=== PATIENT | female | born 1995 | race Caucasian/White ===

== ENCOUNTER → 2017-04-09 11:01 | Outpatient (CLI) | payer MEDICAID, SELFPAY ==
[2017-04-09 13:38] LABS: Color, Urine Yellow (Yellow); Glucose, Dipstick Normal (Normal); Ketone-Dipstick Negative (Negative); Leukocyte Esterase-Dipstick 500 /ul (Negative); Nitrite-Dipstick Negative (Negative); Occult Blood-Urine Negative /ul (Negative); Protein-Dipstick Negative (Negative); Urine Bilirubin Dipstick Negative (Negative); Urine Clarity Cloudy (Clear); Urine Urobilinogen Normal (Normal)
[2017-04-09 13:57] LABS: COTININE Drug Screen Negative (<200 ng/mL)
[2017-04-09 13:58] LABS: Absolute Lymphocyte Count 1.86 X10^3/ul (0.83-4.51); Absolute Neutrophil Count 4.7 X10^3/uL (2.0-7.7); Basophil# 0.03 X10^3/uL; Basophil% 0.4 % (0-1); Eosinophil# 0.16 X10^3/uL; Eosinophils% 2.2 % (0-5); Hematocrit 42.3 % (37-47); Lymphocyte # 1.86 X10^3/ul (4.0); Lymphocyte % 25.6 % (19-41); Mean Corp Hgb Conc 33.1 g/gl (32-36); Mean Corpuscular Hgb 31.2 pg (27.0-32.0); Mean Corpuscular Volume 94.2 fL (81-99); Mean Platelet Vol. 12.1 fl (6.2-12.0); Monocyte# 0.46 X10^3/uL; Monocyte% 6.3 % (0-10); Neutrophil # 4.74 X10^3/uL (2.7-7.7); Neutrophil % 65.4 % (47-70); Platelet Count 222 K/mm3 (150-450); Red Blood Count 4.49 M/mm3 (4.2-5.4); White Blood Count 7.3 K/mm3 (4.4-11.0)
[2017-04-09 14:00] LABS: POSITIVE COUNT NO; POSITIVE DIFFERENTIAL NO; POSITIVE MORPHOLOGY NO
[2017-04-09 14:02] LABS: Thyroid Stim Hormone (TSH) 2.02 uIU/mL (0.358-3.74)
[2017-04-09 14:40] LABS: Amphetamine Urine VISTA NEGATIVE (<1000 ng/mL); Barbiturate Urine VISTA NEGATIVE (< 200 ng/mL); Benzodiazepine Urine VISTA NEGATIVE (< 200 ng/mL); Cocaine Urine VISTA NEGATIVE (< 300 ng/mL); Ecstacy Urine VISTA NEGATIVE (< 500 ng/mL); Methadone Urine VISTA NEGATIVE (< 300 ng/mL); PCP Urine VISTA NEGATIVE (< 25 ng/mL); THC Urine VISTA NEGATIVE (< 50 ng/mL); Vista UDS pH Range 8
[2017-04-10 07:13] LABS: HEPATITIS B SURFACE AG Negative (Negative); Hep C Antibodies 0.1 s/co ratio (0.0-0.9)
[2017-04-10 09:49] LABS: HIV - WCH Non-Reactive (Nonreactive); Rubella IgG 119.7 IU/mL
[2017-04-14 01:50] LABS: Prenatal RPR NONREACTIVE (NONREACTIVE)
== END ==
PROVIDERS: Visit Provider Obstetrics & Gynecology
DX: Z34.82 Encounter for supervision of other normal pregnancy, second trimester (principal); Z3A.00 Weeks of gestation of pregnancy not specified
CPT/HCPCS: 36415; 80307; 81002; 84443; 85025; 86703; 86762; 86803; 87340

== ENCOUNTER → 2017-09-13 12:07 | Outpatient (CLI) | payer MEDICAID, SELFPAY ==
[2017-09-13 15:18] LABS: Protein, Urine (Random) 10.3 mg/dL (<11.9)
[2017-09-13 15:23] LABS: ALB/GLOB Ratio 0.6 RATIO (0.9-2.4); AST(SGOT) 14 U/L (15-37); Alanine Aminotransfer ALT/SGPT 15 U/L (13-56); Albumin, Serum 2.6 g/dL (3.2-5.0); Alkaline Phosphatase 266 U/L (45-117); Anion Gap 7 (5-15); BUN 4 mg/dL (7-18); Calcium,Total 8.6 mg/dL (8.5-10.1); Chloride 108 mmol/L (98-107); Creatinine, Serum 0.57 mg/dL (0.55-1.02); EST Glomerular Filtration Rate 140 mL/min (>60); Est Glom Filt Rate - Afr Amer 169 mL/min (>60); Globulin 4.4 g/dL (2.2-4.2); Glucose 71 mg/dL (74-106); Sodium Level 137 mmol/L (136-145); Uric Acid 3.8 mg/dL (2.6-6.0)
[2017-09-13 15:30] LABS: Hematocrit 41.1 % (37-47); Hemoglobin 13.7 g/dl (12.0-15.0); Mean Corp Hgb Conc 33.3 g/gl (32-36); Mean Corpuscular Hgb 31.1 pg (27.0-32.0); Mean Corpuscular Volume 93.4 fL (81-99); Mean Platelet Vol. 12.6 fl (6.2-12.0); Platelet Count 214 K/mm3 (150-450); RBC Distribution Width CV 13.8 % (11.6-14.6); RBC Distribution Width SD 45.2 fl (35.1-43.9); White Blood Count 7.5 K/mm3 (4.4-11.0)
[2017-09-13 15:36] LABS: Scan Indicated on CBC? Y/N NO
== END ==
PROVIDERS: Visit Provider Obstetrics & Gynecology
DX: Z34.83 Encounter for supervision of other normal pregnancy, third trimester (principal)
CPT/HCPCS: 36415; 80053; 82570; 84156; 84550; 85027

== ENCOUNTER 2017-09-17 09:40 | Inpatient (IN) | payer MEDICAID, SELFPAY ==
[2017-09-16 02:00] VITALS: BMI 30.3
[2017-09-17] VITALS (15 sets, daily range): BP systolic 102–131; BP diastolic 46–87; PULSE 60–86; RESP 16; TEMP 36.3–37.8; O2SAT 97–100
[2017-09-17] MEDS: Lactated Ringers 1,000 ML 999 ML IV (10:30)
[2017-09-17 10:49] LABS: Absolute Neutrophil Count 4.3 X10^3/uL (2.0-7.7); Basophil# 0.02 X10^3/uL; Basophil% 0.3 % (0-1); Eosinophil# 0.22 X10^3/uL; Eosinophils% 3.2 % (0-5); Hemoglobin 13.2 g/dl (12.0-15.0); Lymphocyte % 26.2 % (19-41); Mean Corpuscular Hgb 30.8 pg (27.0-32.0); Mean Corpuscular Volume 93.5 fL (81-99); Mean Platelet Vol. 12.1 fl (6.2-12.0); Monocyte# 0.57 X10^3/uL; Monocyte% 8.3 % (0-10); Neutrophil # 4.25 X10^3/uL (2.7-7.7); Neutrophil % 61.7 % (47-70); Platelet Count 194 K/mm3 (150-450); RBC Distribution Width CV 14.1 % (11.6-14.6); RBC Distribution Width SD 47.7 fl (35.1-43.9); Red Blood Count 4.28 M/mm3 (4.2-5.4); White Blood Count 6.9 K/mm3 (4.4-11.0)
[2017-09-17 10:50] LABS: POSITIVE COUNT NO; POSITIVE DIFFERENTIAL NO; POSITIVE MORPHOLOGY NO
[2017-09-17 10:54] LABS: Prothrombin Time (Protime)PT. 12.9 SECONDS (11.7-14.9)
[2017-09-17 10:55] LABS: Partial Thromboplast Time 35.6 Seconds (24.1-36.2)
[2017-09-17] MEDS: Lactated Ringers 1,000 ML 100 ML IV ×2 (11:30→15:53)
[2017-09-17] MEDS: Sodium Citrate/Citric Acid 30 ML UDC PO (11:30)
[2017-09-17] MEDS: Oxytocin 30 units/NS 500 ml 30 UNITS/500 ML IV.SOLN 167 UNITS IV (11:48)
[2017-09-17] MEDS: Cefazolin 2 GM in 0.9% Normal Saline 100 ML IV (11:50)
[2017-09-17] MEDS: Ketorolac 30 MG/ML Syringe IV ×2 (13:10→18:55)
[2017-09-18] VITALS (8 sets, daily range): BP systolic 104–132; BP diastolic 45–70; PULSE 71–77; RESP 16–18; TEMP 36.7–37.3; O2SAT 97–99
[2017-09-18] MEDS: Ketorolac 30 MG/ML Syringe IV ×4 (00:02→17:35)
[2017-09-18] MEDS: 0.9% Saline Lock 10 ML Syringe IV ×4 (00:03→17:35)
[2017-09-18] MEDS: Lactated Ringers 1,000 ML 100 ML IV (01:55)
[2017-09-18 04:50] LABS: Hematocrit 35.4 % (37-47); Hemoglobin 11.6 g/dl (12.0-15.0); Mean Corp Hgb Conc 32.8 g/gl (32-36); Mean Corpuscular Hgb 31.2 pg (27.0-32.0); Mean Corpuscular Volume 95.2 fL (81-99); Mean Platelet Vol. 11.9 fl (6.2-12.0); Platelet Count 164 K/mm3 (150-450); RBC Distribution Width SD 46.1 fl (35.1-43.9); Red Blood Count 3.72 M/mm3 (4.2-5.4); White Blood Count 7.4 K/mm3 (4.4-11.0)
[2017-09-18 04:51] LABS: Scan Indicated on CBC? Y/N NO
--- NOTE | 2017-09-18 07:46 | PCM.OPRPT ---
Problem List (1) 37 weeks gestation of Status: Acute (2) delivery delivered Status: Acute (3) History of classical section Status: Acute Report of Operation Date of Procedure: 09/17/17 Pre-Operative Diagnosis: 37 1/7wga, h/o prior classical section with T incision Post-Operative Diagnosis: 37 1/7wga, history of prior Classical section with T incision Surgery/Procedure Performed:: Repeat low transverse section Description of Surgical Findings:: normal tubes MALE infant, Apgars 8 and 9, Weight 3055g employment director: Crystal Freeman Type of Anesthesia:: Spinal Anesthesiologist: Mateus Shukla Specimen's removed: placenta to WP Drains: Urine - 600 mL Estimated Blood Loss (mL): 500 Fluids Replaced: 1700 mL Description of Procedure: The patient was taken to the operating room and spinal analgesia was administered. She is placed in a dorsal supine position with left lateral tilt. The perineum and abdomen were prepped and draped in sterile fashion. And the spinal was found to be adequate. A Pfannenstiel incision was made using a scalpel and brought down to incise the subcutaneous tissue and rectus fascia at the midline. Subcutaneous tissue was bluntly dissected off the fascia laterally. The fascial incision was dissected laterally and cephalad using curved Frederick scissors. The superior leaflet of the rectus fascia was grasped using Guille clamps and bluntly dissected and sharply dissected from the underlying rectus muscle. In a similar fashion the inferior rectus fascia was dissected from the underlying muscle. The rectus muscles were bluntly at the midline. The peritoneum was identified and entered [sharply]. The bladder blade was placed into the abdomen and the vesicouterine peritoneal fold identified. The fold was incised and a bladder flap created. Bladder blade was then repositioned to the abdomen. A low transverse hysterotomy was made using the [Metzenbaum scissors] to level of the membranes. The hysterotomy was extended bluntly cephalad and caudad. The membranes were then ruptured revealing clear fluid. The head was elevated and brought to the level of the hysterotomy and the infant delivered revealing vigorous [male] infant. The cord was doubly clamped and cut after 60 seconds. The was passed to awaiting [nursery personnel]. The placenta was [expressed] from the uterus and appeared intact on inspection. The uterus was cleared of debris. The hysterotomy was then repaired using 0 Vicryl running lock suture. Katie was placed for additional hemostasis with hemostasis attained. The bladder blade was removed. The anterior cul-de-sac was cleared of debris. The peritoneum and rectus muscles were reapproximated using 2-0 Vicryl running suture. The rectus fascia was closed using 0 Vicryl running suture. The subcutaneous tissue was sponge irrigated and small capillary bleeding controlled using the Bovie device. The subcutaneous tissue was reapproximated using 2-0 Vicryl. The skin was closed using 4-0 Monocryl subcuticularly. A Mepilex occlusive dressing was placed over the incision. The fundus was firm. The patient was then transferred to the recovery room without complication. Sponge, instrument, and needle counts were correct ?2. - Complications None - Admit VTE Documentation VTE Present on Admission: No VTE Mechan Device Prophylaxis: SCD's VTE Pharm Prophylaxis ordered?: No
--- NOTE | 2017-09-18 07:52 | OP.PCM_ITS ---
Problem List (1) 37 weeks gestation of Status: Acute (2) delivery delivered Status: Acute (3) History of classical section Status: Acute Report of Operation Date of Procedure: 09/17/17 Pre-Operative Diagnosis: 37 1/7wga, h/o prior classical section with T incision Post-Operative Diagnosis: 37 1/7wga, history of prior Classical section with T incision Surgery/Procedure Performed:: Repeat low transverse section Description of Surgical Findings:: normal tubes MALE infant, Apgars 8 and 9, Weight 3055g physician locums urgent care: Crystal Freeman Type of Anesthesia:: Spinal Anesthesiologist: Mateus Shukla Specimen's removed: placenta to WP Drains: Urine - 600 mL Estimated Blood Loss (mL): 500 Fluids Replaced: 1700 mL Description of Procedure: The patient was taken to the operating room and spinal analgesia was administered. She is placed in a dorsal supine position with left lateral tilt. The perineum and abdomen were prepped and draped in sterile fashion. And the spinal was found to be adequate. A Pfannenstiel incision was made using a scalpel and brought down to incise the subcutaneous tissue and rectus fascia at the midline. Subcutaneous tissue was bluntly dissected off the fascia laterally. The fascial incision was dissected laterally and cephalad using curved Frederick scissors. The superior leaflet of the rectus fascia was grasped using Guille clamps and bluntly dissected and sharply dissected from the underlying rectus muscle. In a similar fashion the inferior rectus fascia was dissected from the underlying muscle. The rectus muscles were bluntly at the midline. The peritoneum was identified and entered [sharply]. The bladder blade was placed into the abdomen and the vesicouterine peritoneal fold identified. The fold was incised and a bladder flap created. Bladder blade was then repositioned to the abdomen. A low transverse hysterotomy was made using the [Metzenbaum scissors] to level of the membranes. The hysterotomy was extended bluntly cephalad and caudad. The membranes were then ruptured revealing clear fluid. The head was elevated and brought to the level of the hysterotomy and the infant delivered revealing vigorous [ male] . The cord was doubly clamped and cut after 60 seconds. The was passed to awaiting [nursery personnel]. The placenta was [expressed ] from the uterus and appeared intact on inspection. The uterus was cleared of debris. The hysterotomy was then repaired using 0 Vicryl running lock suture. Katie was placed for additional hemostasis with hemostasis attained. The bladder blade was removed. The anterior cul-de-sac was cleared of debris. The peritoneum and rectus muscles were reapproximated using 2-0 Vicryl running suture. The rectus fascia was closed using 0 Vicryl running suture. The subcutaneous tissue was sponge irrigated and small capillary bleeding controlled using the Bovie device. The subcutaneous tissue was reapproximated using 2-0 Vicryl. The skin was closed using 4-0 Monocryl subcuticularly. A Mepilex occlusive dressing was placed over the incision. The fundus was firm. The patient was then transferred to the recovery room without complication. Sponge, instrument, and needle counts were correct ?2. - Complications None - Admit VTE Documentation VTE Present on Admission: No VTE Mechan Device Prophylaxis: SCD's VTE Pharm Prophylaxis ordered?: No
--- NOTE | 2017-09-18 08:00 | PN.OBGYN_ITS ---
Patient Problems: Active and Suspected Problems 37 weeks gestation of (Acute) delivery delivered (Acute) Subjective: Hanna did not get much sleep overnight. Infant cluster fed overnight. Denies heavy lochia. Tolerated a regular diet without nausea or vomiting. No flatus yet. OOB to chair. Pain controlled. Objective: AVSS - Physical Exam General: Alert, Oriented x3, Cooperative HEENT: Atraumatic, PERRLA, EOMI, Normocephalic Lungs: Clear to auscultation, Normal air movement Cardiovascular: Regular rate, Regular Rhythm, Normal S1, Normal S2 Abdomen: Bowel Sounds Present, Soft, Non Tender, Non-Distended Extremities: No edema, No Calf Tenderness Neurological: Neuro grossly intact Psych/Mental Status: Normal Affect, Appropriate, Alert and oriented to time, place, person, mood and affect Vital Signs Temp Pulse Resp BP Pulse Ox 98.4 F 71 16 120/46 L 98 09/18/17 06:07 09/18/17 06:07 09/18/17 06:07 09/18/17 06:07 09/18/17 06:07 Oxygen Delivery Method Room Air Weight: 85.2 kg Body Mass Index (BMI) 30.3 Intake and Output for Last 24 Hours 09/16/17 09/17/17 09/18/17 23:59 23:59 23:59 Intake Total 3300 / 3300 3566 / 3566 Output Total 7300 / 7300 2400 / 2400 Balance -4000 / -4000 1166 / 1166 Laboratory Tests Past 24 Hrs 09/17/17 09/17/17 09/17/17 10:30 10:30 10:30 WBC 6.9 RBC 4.28 Hgb 13.2 Hct 40.0 MCV 93.5 MCH 30.8 MCHC 33.0 RDW 14.1 RDW Differential 47.7 H Plt Count 194 MPV 12.1 H Immature Gran % (Auto) 0.300 Neut % (Auto) 61.7 Lymph % (Auto) 26.2 [place] % (Auto) 8.3 Eos % (Auto) 3.2 Baso % (Auto) 0.3 Absolute Neuts (auto) 4.3 Absolute Lymphs (auto) 1.80 Total Counted Not Reportable PT 12.9 INR 1.0 APTT 35.6 Blood Type O POSITIVE Antibody Screen NEGATIVE 09/18/17 04:35 WBC 7.4 RBC 3.72 L Hgb 11.6 L Hct 35.4 L MCV 95.2 MCH 31.2 MCHC 32.8 RDW 14.0 RDW Differential 46.1 H Plt Count 164 MPV 11.9 Immature Gran % (Auto) Neut % (Auto) Lymph % (Auto) [place] % (Auto) Eos % (Auto) Baso % (Auto) Absolute Neuts (auto) Absolute Lymphs (auto) Total Counted PT INR APTT Blood Type Antibody Screen Medical Necessity - Tobacco Use Smoking Status: Never smoker Assessment/Plan All Active Problems 37 weeks gestation of (Acute) delivery delivered (Acute) 38 weeks gestation of (Acute) History of classical section (Acute) 22yo POD#1 s/p RLTCS doing well. -O positive, Rubella immune - -UO adequate, d/c chowdary - ambulation encouraged -Routine postop care
[2017-09-18] MEDS: oxyCODONE 5 MG Tablet PO (14:51)
[2017-09-18] MEDS: Senna/Docusate Sodium 1 Tablet PO (15:57)
[2017-09-18] MEDS: Hydrocortisone 2.5% Crm 1 APPLIC TOPICAL (20:38)
[2017-09-19] MEDS: 0.9% Saline Lock 10 ML Syringe IV ×2 (00:10→05:50)
[2017-09-19] MEDS: Ketorolac 30 MG/ML Syringe IV ×2 (00:10→05:49)
[2017-09-19 02:21] VITALS: BP 112/66; PULSE 68; RESP 16; TEMP 36.5; O2SAT 98
[2017-09-19] MEDS: Senna/Docusate Sodium 1 Tablet PO (06:00)
--- NOTE | 2017-09-19 09:10 | PCM.PN.OB ---
Patient Problems: Active and Suspected Problems 37 weeks gestation of (Acute) delivery delivered (Acute) Subjective: c/o rash from incisional dressing. Itching improved with hydrocortisone cream. clusterfed again. Ambulating without difficulty. Feels well today and pain minimum. Lochia slowed. Objective: AVSS - Physical Exam General: Alert, Oriented x3, Cooperative HEENT: Atraumatic, PERRLA, EOMI, Normocephalic Lungs: Clear to auscultation, Normal air movement Cardiovascular: Regular rate, Regular Rhythm, Normal S1, Normal S2 Abdomen: Bowel Sounds Present, Soft, Non Tender, Non-Distended, Passing Flatus, - - Incision c/d/i and nontender Extremities: No edema, No Calf Tenderness Neurological: Neuro grossly intact Psych/Mental Status: Normal Affect, Appropriate, Alert and oriented to time, place, person, mood and affect Vital Signs Temp Pulse Resp BP Pulse Ox 97.7 F L 68 16 112/66 98 09/19/17 02:21 09/19/17 02:21 09/19/17 02:21 09/19/17 02:21 09/19/17 02:21 Oxygen Delivery Method Room Air Weight: 85.2 kg Body Mass Index (BMI) 30.3 Intake and Output for Last 24 Hours 09/17/17 09/18/17 09/19/17 23:59 23:59 23:59 Intake Total 3300 / 3300 3566 / 3566 Output Total 7300 / 7300 6000 / 6000 Balance -4000 / -4000 -2434 / -2434 Medical Necessity - Tobacco Use Smoking Status: Never smoker Assessment/Plan All Active Problems 37 weeks gestation of (Acute) delivery delivered (Acute) 38 weeks gestation of (Acute) History of classical section (Acute) 22yo POD#1 s/p RLTCS doing well. -O positive, Rubella immune - -Routine postop care -d/c home today
--- NOTE | 2017-09-19 09:18 | DCINST_ITS ---
Discharge Diet: No Restrictions Discharge Activity: Return to Normal Activity, May not drive while taking narcotic pain medications., May Shower, - - No tub bath for 2 weeks May resume sexual activity in: 6 weeks Lifting Restrictions: 10-20 lb Call your doctor if your incision/area has: Continuous Slow Oozing, Sudden Increased Bleeding, Increased Pain/ Swelling, Increased Redness, Foul Smelling Discharge Call your doctor if you observe: Fever of 101 or Higher, Inability to urinate, Inability to have a bowel movement, Using more than one pad per hour, Shortness of breath, Chest pain, Calf discomfort, Uncontrolled pain Suture Line Care: Avoid Pulling/Pushing Cleanse incision/area with: Soap & Water Additional Instructions: If you experience any of the following, contact your healthcare provider. * Bleeding that soaks a pad every hour for 2 hours * Fever 100.4 or higher * Unrelieved incision or abdominal pain * Swelling, redness, discharge or bleeding from your incision or episiotomy site * Your incision begins to separate * Problems urinating (including inability to urinate or burning while urinating) . * Visual changes * Severe headache * Flu-like symptoms * Pain or redness in one of both of your breasts * Pain, warmth, tenderness or swelling in your legs, especially the calf area * Frequent nausea and vomiting * Symptoms of depression or anxiety If you experience any of the following, call 911 or go to the nearest Emergency Room. * Chest pain * Problems breathing * Seizure activity * Partial or complete paralysis of a body part, slurred speech, weakness or drooping of the face, or a sudden inability to walk or hold your balance Allergies/Adverse Reactions: Allergies No Known Allergies Allergy (Verified 09/22/15 14:45) Medications to take at Discharge Melatonin 3 mg PO DAILY MDD 3 09/12/17 Dha 1 tab PO DAILY MDD 1 09/12/17 Ibuprofen 600 mg PO TID PRN #30 tab 09/19/17 Oxycodone [Oxyir] 1 - 2 tab PO Q4H PRN PRN 3 Days #28 tablet 09/19/17 Senna/Docusate Sodium [Senokot-S] 1 - 2 tab PO DAILY PRN #60 tab 09/19/17 The following prescriptions were given: Oxycodone [Oxyir] 1 - 2 tab PO Q4H PRN PRN 3 Days #28 tablet PRN Reason: Mod-Severe Pain (4-12/04) Senna/Docusate Sodium [Senokot-S] 1 - 2 tab PO DAILY PRN #60 tab PRN Reason: Constipation Ibuprofen 600 mg PO TID PRN #30 tab PRN Reason: Pain Follow-Up: Call to make an appointment with your doctor for an incision check in 1-2 weeks. You will also need a 6 week post- follow up appointment. Test results from this visit will be discussed in further detail at your follow- up appointment, if applicable. Please Follow Up With: Shanae Ortez MD When: 1-2 weeks Primary Care Physician: Care Physician,No Primary [Primary Care Provider] -
[2017-09-19 10:00] VITALS: BP 109/69; PULSE 74; RESP 20; TEMP 36.6
--- NOTE | 2017-09-27 13:01 | NURSING ---
follow up phone call attempted left message
== END 2017-09-19 13:10 | disposition home or self-care (01) | DRG 371 ==
PROVIDERS: Obstetrics & Gynecology; Admitting Provider Obstetrics & Gynecology; Visit Provider Obstetrics & Gynecology
PROC: (CPT 59514; principal; 2017-09-17 11:45)
DX: O34.212 Maternal care for vertical scar from previous cesarean delivery (principal); Z3A.37 37 weeks gestation of pregnancy; Z37.0 Single live birth
CPT/HCPCS: 85025; 85027; 85610; 85730; 86850; 86900; 99218; J7120; A4216; G0378

== ENCOUNTER → 2019-07-10 15:48 | Outpatient (CLI) | payer OTHER, SELFPAY ==
[2017-09-16 02:00] VITALS: BMI 30.3
[2019-07-10 16:14] LABS: Absolute Lymphocyte Count 1.97 X10^3/uL (0.83-4.51); Absolute Neutrophil Count 6.5 X10^3/uL (2.0-7.7); Basophil# 0.05 X10^3/uL; Basophil% 0.5 % (0-1); Eosinophil# 0.31 X10^3/uL; Eosinophils% 3.2 % (0-5); Hematocrit 41.7 % (37-47); Hemoglobin 13.5 g/dL (12.0-15.0); Lymphocyte # 1.97 X10^3/ul (4.0); Lymphocyte % 20.6 % (19-41); Mean Corp Hgb Conc 32.4 g/dL (32-36); Mean Corpuscular Hgb 31.1 pg (27.0-32.0); Mean Corpuscular Volume 96.1 fL (81-99); Mean Platelet Vol. 11.8 fl (6.2-12.0); Monocyte# 0.71 X10^3/uL; Monocyte% 7.4 % (0-10); NRBC Flagged by Analyzer 0 % (0-5); Neutrophil # 6.47 X10^3/uL (2.7-7.7); Neutrophil % 67.9 % (47-70); Platelet Count 229 K/mm3 (150-450); RBC Distribution Width CV 13.3 % (11.6-14.6); Red Blood Count 4.34 M/mm3 (4.2-5.4); White Blood Count 9.6 K/mm3 (4.4-11.0)
[2019-07-10 16:19] LABS: Color, Urine Yellow (Yellow); Glucose, Dipstick Normal (Normal); Ketone-Dipstick 5 mg/dl (Negative); Leukocyte Esterase-Dipstick 100 /ul (Negative); Nitrite-Dipstick Negative (Negative); Occult Blood-Urine Negative /ul (Negative); Protein-Dipstick Negative (Negative); Urine Bilirubin Dipstick Negative (Negative); Urine Clarity Cloudy (Clear); Urine Urobilinogen Normal (Normal); Urine pH 6.5 (5.0 - 8.0)
[2019-07-10 17:11] LABS: Thyroid Stim Hormone (TSH) 1.45 uIU/mL (0.358-3.74)
[2019-07-10 17:25] LABS: Amphetamine Urine VISTA NEGATIVE (<1000 ng/mL); Barbiturate Urine VISTA NEGATIVE (< 200 ng/mL); Benzodiazepine Urine VISTA NEGATIVE (< 200 ng/mL); Cocaine Urine VISTA NEGATIVE (< 300 ng/mL); Ecstacy Urine VISTA NEGATIVE (< 500 ng/mL); Methadone Urine VISTA NEGATIVE (< 300 ng/mL); PCP Urine VISTA NEGATIVE (< 25 ng/mL); THC Urine VISTA NEGATIVE (< 50 ng/mL); Vista UDS pH Range 6
[2019-07-13 09:22] LABS: HIV - WCH Non-Reactive (Nonreactive); Hepatitis B Surface Antigen Non-Reactive (Nonreactive); Hepatitis C Antibody Non-Reactive (Nonreactive); Rubella IgG 81.3 IU/mL
[2019-07-16 02:20] LABS: Prenatal RPR NONREACTIVE (NONREACTIVE)
== END ==
PROVIDERS: Referring Provider Obstetrics & Gynecology; Visit Provider Obstetrics & Gynecology
DX: Z34.83 Encounter for supervision of other normal pregnancy, third trimester (principal)
CPT/HCPCS: 36415; 80307; 81002; 84443; 85025; 86703; 86762; 86803; 87340

== ENCOUNTER 2019-11-28 18:13 | Outpatient (CLI) | payer OTHER, SELFPAY ==
[2019-11-28 18:24] VITALS: BP 114/74; PULSE 75; TEMP 36.6; O2SAT 97
[2019-11-28 18:31] VITALS: BMI 33.5
--- NOTE | 2019-11-30 06:42 | OB.TRI.NOTE ---
- Problem List (1) 26 weeks gestation of Status: Acute (2) Decreased movement Status: Acute Qualifiers: Fetus number: single or unspecified fetus Trimester: second trimester Qualified Code(s): O36.8120 - Decreased movements, second trimester, not applicable or unspecified History of Present Illness Date of Service: 11/28/19 Was patient seen by the physician?: No Reason For Visit: DECREASED MOVEMENT Final REGGIE: 02/29/20 Final REGGIE Source: US <20 weeks Gestational age: 26 Weeks and 5 Days History of Present Illness: 24yo @ 26 5/7wga with c/o decreased movement. She called into L&D and I advised her to come in for evaluation. Allergies No Known Allergies Allergy (Verified 09/22/15 14:45) Physical Exam Vitals: Vital Signs Temp Pulse BP Pulse Ox 97.8 F 75 114/74 97 11/28/19 18:24 11/28/19 18:24 11/28/19 18:24 11/28/19 18:24 NST - FHR Rate Baby A Baseline: 140 Variability:: Moderate Accelerations:: 15 x 15 Decelerations:: Variable NST Reactive:: Appropriate for gestational age FHR Category:: Category II Uterine Activity:: 0/10 Impression/Plan 24yo @ 26 5/7wga with decreased movement -FHR AGA, pt reported improved movement during period of observation -d/c home
== END 2019-11-28 19:00 | disposition home or self-care (01) ==
LOC: WPOUT 18:16 → OBT 18:18
PROVIDERS: Referring Provider Obstetrics & Gynecology; Visit Provider Obstetrics & Gynecology
DX: O36.8120 Decreased fetal movements, second trimester, not applicable or unspecified (principal); Z3A.26 26 weeks gestation of pregnancy
CPT/HCPCS: 59025; 59050; 99218; G0378

== ENCOUNTER → 2019-12-02 16:12 | Outpatient (CLI) | payer OTHER, SELFPAY ==
[2019-11-28 18:31] VITALS: BMI 33.5
[2019-12-02 17:25] LABS: Hematocrit 39.1 % (37-47); Hemoglobin 12.6 g/dL (12.0-15.0); Mean Corp Hgb Conc 32.2 g/dL (32-36); Mean Corpuscular Hgb 30.7 pg (27.0-32.0); Mean Corpuscular Volume 95.1 fL (81-99); Mean Platelet Vol. 12.6 fl (6.2-12.0); Platelet Count 239 K/mm3 (150-450); RBC Distribution Width CV 13.4 % (11.6-14.6); RBC Distribution Width SD 46.8 fl (35.1-43.9); Red Blood Count 4.11 M/mm3 (4.2-5.4); White Blood Count 7.6 K/mm3 (4.4-11.0)
[2019-12-02 17:31] LABS: Glucose Challenge Gest 1H 50g 85 mg/dL (70-140)
== END ==
PROVIDERS: Visit Provider Obstetrics & Gynecology
DX: Z34.82 Encounter for supervision of other normal pregnancy, second trimester (principal)
CPT/HCPCS: 36415; 82950; 85027

== ENCOUNTER → 2019-12-25 15:17 | Outpatient (CLI) | payer OTHER, SELFPAY ==
[2019-11-28 18:31] VITALS: BMI 33.5
[2019-12-25 16:05] LABS: Hematocrit 38.9 % (37-47); Hemoglobin 12.7 g/dL (12.0-15.0); Mean Corp Hgb Conc 32.6 g/dL (32-36); Mean Corpuscular Hgb 30.9 pg (27.0-32.0); Mean Corpuscular Volume 94.6 fL (81-99); Mean Platelet Vol. 12.2 fl (6.2-12.0); Platelet Count 266 K/mm3 (150-450); RBC Distribution Width CV 13.7 % (11.6-14.6); RBC Distribution Width SD 47.1 fl (35.1-43.9); Red Blood Count 4.11 M/mm3 (4.2-5.4); White Blood Count 8.4 K/mm3 (4.4-11.0)
[2019-12-25 16:11] LABS: Protein, Urine (Random) 10.3 mg/dL (<11.9); Protein:Creat Ratio 131 mg/g CRE (0-200)
[2019-12-25 17:22] LABS: ALB/GLOB Ratio 0.6 RATIO (0.9-2.4); AST(SGOT) 11 U/L (15-37); Alanine Aminotransfer ALT/SGPT 12 U/L (13-56); Albumin, Serum 2.6 g/dL (3.2-5.0); Alkaline Phosphatase 158 U/L (45-117); Anion Gap 7 (5-15); BUN 6 mg/dL (7-18); BUN/Creat Ratio 10.9 RATIO (10-20); Chloride 107 mmol/L (98-107); Creatinine, Serum 0.55 mg/dL (0.55-1.02); EST Glomerular Filtration Rate 142 mL/min (>60); Est Glom Filt Rate - Afr Amer 172 mL/min (>60); Globulin 4.3 g/dL (2.2-4.2); Glucose 80 mg/dL (74-106); Protein, Total 6.9 g/dL (6.4-8.2); Sodium Level 138 mmol/L (136-145); Uric Acid 2.8 mg/dL (2.6-6.0)
== END ==
PROVIDERS: Visit Provider Obstetrics & Gynecology
DX: O13.3 Gestational [pregnancy-induced] hypertension without significant proteinuria, third trimester (principal); R51.9 Headache, unspecified; Z3A.00 Weeks of gestation of pregnancy not specified
CPT/HCPCS: 36415; 80053; 82570; 84156; 84550; 85027

== ENCOUNTER → 2019-12-29 | Outpatient (CLI) | payer OTHER, SELFPAY ==
[2019-12-29 08:52] LABS: 24HR. UA Prot. Total Volume 1500 mL; Urine Protein (24 Hour) 12.6 mg/dL (<11.9)
== END | disposition home or self-care (01) ==
LOC: LABSPEC 08:35
PROVIDERS: Visit Provider Obstetrics & Gynecology
DX: O13.3 Gestational [pregnancy-induced] hypertension without significant proteinuria, third trimester (principal); R51.9 Headache, unspecified
CPT/HCPCS: 81050; 84156

== ENCOUNTER 2020-01-22 13:00 | Outpatient (CLI) | payer OTHER, SELFPAY ==
[2020-01-22 13:09] VITALS: BP 127/84; PULSE 77; TEMP 36.6; O2SAT 98
[2020-01-22 13:12] VITALS: BMI 33.6
--- NOTE | 2020-01-22 17:45 | PCM.PN.BLA ---
Progress Note NST REACTIVE 135/mod beltran/+accel/no decel, toco quiet. For HTN, BP wnl.
== END 2020-01-22 13:35 | disposition home or self-care (01) ==
PROVIDERS: Referring Provider Student in an Organized Health Care Education/Training Program; Visit Provider Student in an Organized Health Care Education/Training Program
DX: O16.9 Unspecified maternal hypertension, unspecified trimester (principal)
CPT/HCPCS: 59025

== ENCOUNTER 2020-01-27 17:00 | Outpatient (CLI) | payer OTHER, SELFPAY ==
[2020-01-27] VITALS (11 sets, daily range): BP systolic 104–122; BP diastolic 57–70; PULSE 68–83; BMI 32.8
[2020-01-27] MEDS: Acetaminophen 500 MG Tablet 1000 MG PO (17:33)
[2020-01-27 17:46] LABS: Protein, Urine (Random) 10.8 mg/dL (<11.9); Protein:Creat Ratio 238 mg/g CRE (0-200)
[2020-01-27 18:18] LABS: Hematocrit 37.3 % (37-47); Hemoglobin 12.1 g/dL (12.0-15.0); Mean Corp Hgb Conc 32.4 g/dL (32-36); Mean Corpuscular Volume 92.6 fL (81-99); Mean Platelet Vol. 12.8 fl (6.2-12.0); Platelet Count 245 K/mm3 (150-450); RBC Distribution Width CV 13.3 % (11.6-14.6); RBC Distribution Width SD 44.7 fl (35.1-43.9); Red Blood Count 4.03 M/mm3 (4.2-5.4); White Blood Count 8.9 K/mm3 (4.4-11.0)
[2020-01-27 18:19] LABS: Scan Indicated on CBC? Y/N NO
[2020-01-27 18:52] LABS: ALB/GLOB Ratio 0.6 RATIO (0.9-2.4); AST(SGOT) 13 U/L (15-37); Alanine Aminotransfer ALT/SGPT 16 U/L (13-56); Albumin, Serum 2.4 g/dL (3.2-5.0); Alkaline Phosphatase 209 U/L (45-117); Anion Gap 6 (5-15); BUN 8 mg/dL (7-18); BUN/Creat Ratio 16.7 RATIO (10-20); Calcium,Total 8.7 mg/dL (8.5-10.1); Chloride 108 mmol/L (98-107); Creatinine, Serum 0.48 mg/dL (0.55-1.02); EST Glomerular Filtration Rate 167 mL/min (>60); Est Glom Filt Rate - Afr Amer 202 mL/min (>60); Estimated Creatinine Clearance 174.23 ml/min; Globulin 4.3 g/dL (2.2-4.2); Glucose 76 mg/dL (74-106); Potassium 3.9 mmol/L (3.5-5.1); Protein, Total 6.7 g/dL (6.4-8.2); Sodium Level 136 mmol/L (136-145); Uric Acid 3.2 mg/dL (2.6-6.0)
--- NOTE | 2020-01-28 05:52 | OB.TRI.NOTE ---
History of Present Illness Was patient seen by the physician?: No Reason For Visit: ELEVATED BLOOD PRESURE Date of Service: 01/27/20 Final REGGIE: 02/29/20 Final REGGIE Source: US <20 weeks Gestational age: 35 Weeks and 2 Days History of Present Illness: 35+ week intrauterine with headache reported in the office as well as some elevated blood pressures. Presents to rule out -induced hypertension. Allergies No Known Allergies Allergy (Verified 01/27/20 17:20) Laboratory Studies: Laboratory Tests 01/27/20 01/27/20 01/27/20 Range/Units 17:30 17:30 17:30 WBC 8.9 (4.4-11.0) K/mm3 RBC 4.03 L (4.2-5.4) M/mm3 Hgb 12.1 (12.0-15.0) g/dL Hct 37.3 (37-47) % MCV 92.6 (81-99) fL MCH 30.0 (27.0-32.0) pg MCHC 32.4 (32-36) g/dL RDW Std Deviation 44.7 H (35.1-43.9) fl RDW Coeff of Ernesto 13.3 (11.6-14.6) % Plt Count 245 (150-450) K/mm3 MPV 12.8 H (6.2-12.0) fl Sodium 136 (136-145) mmol/L Potassium 3.9 (3.5-5.1) mmol/L Chloride 108 H (98-107) mmol/L Carbon Dioxide 22.0 (21.0-32.0) mmol/L Anion Gap 6 (5-15) BUN 8 (7-18) mg/dL Creatinine 0.48 L (0.55-1.02) mg/dL Estim Creat Clear Calc 174.23 ml/min Est GFR (MDRD) Af Amer 202 (>60) mL/min Est GFR (MDRD) Non-Af 167 (>60) mL/min BUN/Creatinine Ratio 16.7 (10-20) RATIO Glucose 76 (74-106) mg/dL Uric Acid 3.2 (2.6-6.0) mg/dL Calcium 8.7 (8.5-10.1) mg/dL Total Bilirubin 0.20 (0.20-1.00) mg/dL AST 13 L (15-37) U/L ALT 16 (13-56) U/L Alkaline Phosphatase 209 H (45-117) U/L Total Protein 6.7 (6.4-8.2) g/dL Albumin 2.4 L (3.2-5.0) g/dL Globulin 4.3 H (2.2-4.2) g/dL Albumin/Globulin Ratio 0.6 L (0.9-2.4) RATIO U Random Total Protein 10.8 (<11.9) mg/dL Urine Creatinine 45.40 (NO RANGE EST.) mg/dL Protein/Creatinin Ratio 238 H (0-200) mg/g CRE Physical Exam Vitals: Vital Signs Pulse BP 81 109/68 01/27/20 18:56 01/27/20 18:56 NST - FHR Rate Baby A NST Reactive:: Yes FHR Category:: Category I Impression/Plan 35+ week intrauterine uterine with headache. Blood pressures on labor and delivery normal as well as PIH labs. Reactive nonstress test. Will release to home with routine follow-up. Encourage more rest at home.
== END 2020-01-27 19:05 | disposition home or self-care (01) ==
PROVIDERS: Obstetrics & Gynecology; Visit Provider Obstetrics & Gynecology
DX: O26.93 Pregnancy related conditions, unspecified, third trimester (principal); R51.9 Headache, unspecified; R03.0 Elevated blood-pressure reading, without diagnosis of hypertension; Z3A.35 35 weeks gestation of pregnancy
CPT/HCPCS: 36415; 59025; 59050; 80053; 82570; 84156; 84550; 85027; 99218; G0378

== ENCOUNTER → 2020-01-29 | Outpatient (CLI) | payer OTHER, SELFPAY ==
[2020-01-27 17:21] VITALS: BMI 32.8
[2020-01-29 16:38] LABS: Mucous, Urine 0 SEEN /hpf (<or=2+); Red Blood Cells-Urine 0 SEEN /hpf (0-5)
[2020-01-29 16:59] LABS: Color, Urine Yellow (Yellow); Glucose, Dipstick Normal (Normal); Ketone-Dipstick Negative (Negative); Leukocyte Esterase-Dipstick 500 /ul (Negative); Nitrite-Dipstick Negative (Negative); Occult Blood-Urine Negative /ul (Negative); Protein-Dipstick Negative (Negative); Urine Bilirubin Dipstick Negative (Negative); Urine Clarity Clear (Clear); Urine Urobilinogen Normal (Normal)
[2020-01-29 17:08] LABS: Amorphous Sediment 2+; Bacteria 2+ /hpf (None Seen); Squamous Epithelial Cells - UA 5-10 SEEN /hpf (5-10); White Blood Cells 5-10 SEEN /hpf (0-5)
== END | disposition home or self-care (01) ==
LOC: LABSPEC 16:37
PROVIDERS: Visit Provider Obstetrics & Gynecology
DX: O26.893 Other specified pregnancy related conditions, third trimester (principal); R30.0 Dysuria; Z3A.00 Weeks of gestation of pregnancy not specified
CPT/HCPCS: 81001; 87086; 87088

== ENCOUNTER → 2020-02-02 14:47 | Outpatient (CLI) | payer OTHER, SELFPAY ==
[2020-01-27 17:21] VITALS: BMI 32.8
[2020-02-02 16:30] LABS: Hemoglobin 12.5 g/dL (12.0-15.0); Mean Corp Hgb Conc 32.9 g/dL (32-36); Mean Corpuscular Hgb 30.1 pg (27.0-32.0); Mean Corpuscular Volume 91.6 fL (81-99); Mean Platelet Vol. 13.4 fl (6.2-12.0); Platelet Count 242 K/mm3 (150-450); RBC Distribution Width CV 13.3 % (11.6-14.6); RBC Distribution Width SD 44.3 fl (35.1-43.9); Red Blood Count 4.15 M/mm3 (4.2-5.4); White Blood Count 8.2 K/mm3 (4.4-11.0)
[2020-02-02 16:48] LABS: ALB/GLOB Ratio 0.6 RATIO (0.9-2.4); AST(SGOT) 13 U/L (15-37); Alanine Aminotransfer ALT/SGPT 13 U/L (13-56); Albumin, Serum 2.4 g/dL (3.2-5.0); Alkaline Phosphatase 219 U/L (45-117); Anion Gap 7 (5-15); BUN 7 mg/dL (7-18); BUN/Creat Ratio 12.4 RATIO (10-20); Calcium,Total 8.7 mg/dL (8.5-10.1); Chloride 106 mmol/L (98-107); Creatinine, Serum 0.56 mg/dL (0.55-1.02); EST Glomerular Filtration Rate 138 mL/min (>60); Est Glom Filt Rate - Afr Amer 167 mL/min (>60); Globulin 4.3 g/dL (2.2-4.2); Glucose 91 mg/dL (74-106); Potassium 3.9 mmol/L (3.5-5.1); Protein, Total 6.7 g/dL (6.4-8.2); Sodium Level 137 mmol/L (136-145)
== END ==
PROVIDERS: Visit Provider Obstetrics & Gynecology
DX: Z34.83 Encounter for supervision of other normal pregnancy, third trimester (principal)
CPT/HCPCS: 36415; 80053; 84550; 85027

== ENCOUNTER → 2020-02-05 | Outpatient (CLI) | payer OTHER, SELFPAY ==
[2020-01-27 17:21] VITALS: BMI 32.8
== END | disposition home or self-care (01) ==
LOC: LABSPEC 18:14
PROVIDERS: Referring Provider Obstetrics & Gynecology; Visit Provider Obstetrics & Gynecology
DX: Z20.828 Contact with and (suspected) exposure to other viral communicable diseases (principal)
CPT/HCPCS: 87635; C9803; U0003

== ENCOUNTER 2020-02-09 05:05 | Inpatient (IN) | payer OTHER, SELFPAY ==
[2020-01-27 17:21] VITALS: BMI 32.8
[2020-02-09] VITALS (20 sets, daily range): BP systolic 103–129; BP diastolic 54–97; PULSE 16–117; RESP 16–18; TEMP 36.4–37.6; O2SAT 14–100; BMI 34.4
[2020-02-09] MEDS: Lactated Ringers 1,000 ML 999 ML IV (05:25)
[2020-02-09] MEDS: Acetaminophen 500 MG Tablet 1000 MG PO ×3 (05:36→18:12)
[2020-02-09 05:37] LABS: Absolute Lymphocyte Count 1.88 X10^3/uL (0.83-4.51); Absolute Neutrophil Count 4.3 X10^3/uL (2.0-7.7); Basophil# 0.03 X10^3/uL; Basophil% 0.4 % (0-1); Eosinophil# 0.29 X10^3/uL; Eosinophils% 4.1 % (0-5); Hematocrit 36.3 % (37-47); Hemoglobin 11.8 g/dL (12.0-15.0); Lymphocyte # 1.88 X10^3/ul (4.0); Lymphocyte % 26.8 % (19-41); Mean Corp Hgb Conc 32.5 g/dL (32-36); Mean Corpuscular Hgb 29.8 pg (27.0-32.0); Mean Corpuscular Volume 91.7 fL (81-99); Mean Platelet Vol. 12.2 fl (6.2-12.0); Monocyte# 0.46 X10^3/uL; Monocyte% 6.6 % (0-10); NRBC Flagged by Analyzer 0 % (0-5); Neutrophil # 4.33 X10^3/uL (2.7-7.7); Neutrophil % 61.7 % (47-70); Platelet Count 233 K/mm3 (150-450); RBC Distribution Width CV 13.4 % (11.6-14.6); RBC Distribution Width SD 43.9 fl (35.1-43.9); Red Blood Count 3.96 M/mm3 (4.2-5.4)
[2020-02-09] MEDS: Lactated Ringers 1,000 ML 150 ML IV (06:27)
[2020-02-09] MEDS: Sodium Citrate/Citric Acid 30 ML UDC PO (07:02)
[2020-02-09] MEDS: Cefazolin 2 GM in 0.9% Normal Saline 100 ML IV (07:20)
--- NOTE | 2020-02-09 07:35 | PCM.HP.OB ---
- Problem List (1) 37 weeks gestation of Status: Acute History Date of Admission: 09/22/15 Final REGGIE: 02/29/20 Final REGGIE Source: US <20 weeks Gestational age: 37 Weeks and 1 Days History of this : This is a 24 year-old, G [3], P [2], at 37 weeks gestational age presenting for scheduled repeat section. Prior history of classical . Medical History: Medical History (Last Updated 02/09/20 @ 07:[address] Shanae Bender MD) Anxiety F41.9 Depression F32.9 Gestational hypertension O13.9 HSV (herpes simplex virus) anogenital infection A60.9 Surgical History: Surgical History (Last Updated 02/09/20 @ 07:[address] Shanae Bender MD) Previous section Z98.891 2015, 2017 Allergies No Known Allergies Allergy (Verified 01/27/20 17:20) Home Medications: Home Medications Acyclovir 400 mg PO DAILY 01/22/20 Smoking Status: Former smoker Alcohol: None NST - FHR Rate Baby A Baseline: 135 History Past Pregnancies: Past Pregnancies Delivery Date Name GA/ Weeks Outcome Route Wt Sex Labor Length Anesthesia Delivery Location Provider FOB 09/23/2015 [place] 38 second stage, distress Classical c/s 7lb7oz M Epidural [facility] Liseth Mary 09/18/2017 [place] 37 scheduled C/s LTCS 6lb7oz M 0 Spinal [facility] Liseth Mary Labs: Mom's Problem List Problem Status Onset Code 37 weeks gestation of Acute Z3A.37 Mom's Labs & Results 02/09/20 02/09/20 05:20 05:20 WBC 7.0 RBC 3.96 L Hgb 11.8 L Hct 36.3 L MCV 91.7 MCH 29.8 MCHC 32.5 RDW Std Deviation 43.9 RDW Coeff of Ernesto 13.4 Plt Count 233 MPV 12.2 H Immature Gran % (Auto) 0.400 Neut % (Auto) 61.7 Lymph % (Auto) 26.8 [place] % (Auto) 6.6 Eos % (Auto) 4.1 Baso % (Auto) 0.4 Absolute Neuts (auto) 4.3 Absolute Lymphs (auto) 1.88 Nucleated RBC % 0 Blood Type O POSITIVE Antibody Screen NEGATIVE Course Did the patient receive Yes care? Labs Blood Type: O RH: POSITIVE RPR/VDRL/Syphilis Nonreactive Rubella status Immune HbSAg Negative Date Done: 07/10/19 Chlamydia Negative Gonorrhea Negative HIV/AIDS Non-Reactive Group B Strep: Not Done Current Obstetrical History Gestational Diabetes No Incompetent Cervix No Infertility No IUGR No Macrosomia No Hypertension/Pre-eclampsia Yes Placenta Previa/Abruption No PTL/PROM No Uterine anomaly No Oligohydramnios No Polyhydramnios No Multiple gestation No Past Medical History Asthma No Diabetes No Hypertension No Heart disease No Mitral valve prolapse No Neurologic/Seizure disorder/ No Migraines Kidney disease No Liver disease No Varicosities No Clotting disorders/Hx of DVT No Thyroid Dysfunction No Other medical diseases No Psychiatric disorders No Major trauma No Abnormal PAP smear No Sleep apnea Yes: pt states she does but not diagnosed Mammogram in the last 2 years No Social History Marital Status: Alleged father Usman Conley Hx Smoking No Smoking Status Former smoker How long have you used pt denies substances (years)? Expected Delivery Method: Scheduled Section, Repeat Section Number of Visits: 12 Physical Exam Vitals: Vital Signs Temp Pulse Resp BP Pulse Ox 98.1 F 80 16 129/97 H 97 02/09/20 05:44 02/09/20 05:44 02/09/20 05:44 02/09/20 05:44 02/09/20 05:44 General: Alert, Oriented x3, Cooperative, No apparent distress HEENT: Atraumatic, Normocephalic Cardiovascular: Regular rate, Regular Rhythm Lungs: Normal air movement Abdomen: Soft, Non Tender, Non-Distended, Gravid Neurological: Neuro grossly intact Estimated gestational size: Appropriate for gestational size Presentation: Cephalic Assessment/Plan All Active Problems (Last Updated 02/09/20 @ 07:[address] Shanae Bender MD) History of classical section (Acute) delivery delivered (Acute) 37 weeks gestation of (Acute) This is a 24 year-old, G 3[], P [2], at 37 2/7 weeks gestational age. -Proceed with scheduled repeat as planned. -No tubal -LARC declined, plans LARC at 6 weeks
[2020-02-09] MEDS: Oxytocin 30 units/NS 500 ml 30 UNITS/500 ML IV.SOLN 167 UNITS IV (09:00)
[2020-02-09] MEDS: Lactated Ringers 1,000 ML 100 ML IV (12:23)
[2020-02-09] MEDS: Ketorolac 30 MG/ML Syringe IV ×2 (13:51→20:05)
[2020-02-09] MEDS: Pantoprazole Sodium 40 MG Tablet PO (13:52)
[2020-02-09] MEDS: Acyclovir 200 MG Capsule 400 MG PO ×2 (13:52→22:48)
[2020-02-09] MEDS: 0.9% Saline Lock 10 ML Syringe IV ×2 (13:54→18:13)
--- NOTE | 2020-02-09 22:43 | OP.PCM_ITS ---
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 hx prior Classical section. Procedural r/b/i reviewed and consents signed. Indications for : Repeat Elective Description of Procedure: The patient was taken to the operating room and spinal analgesia was administered. She is placed in a dorsal supine position with left lateral tilt. The perineum and abdomen were prepped and draped in sterile fashion. And the spinal was found to be adequate. A Pfannenstiel incision was made using a scalpel and brought down to incise the subcutaneous tissue and rectus fascia at the midline. Subcutaneous tissue was bluntly dissected off the fascia laterally. The fascial incision was dissected laterally and cephalad using curved Frederick scissors. The superior leaflet of the rectus fascia was grasped using Guille clamps and bluntly dissected and sharply dissected from the underlying rectus muscle. In a similar fashion the inferior rectus fascia was dissected from the underlying muscle. The rectus muscles were bluntly at the midline. The peritoneum was identified and entered [sharply]. The bladder blade was placed into the abdomen and the vesicouterine peritoneal fold identified. The fold was incised and a bladder flap created. Bladder blade was then repositioned to the abdomen. A low transverse hysterotomy was made using the [Metzenbaum scissors] to level of the membranes. The hysterotomy was extended bluntly cephalad and caudad. The membranes were then ruptured revealing clear fluid. The head was elevated and brought to the level of the hysterotomy and the delivered revealing vigorous [male] . The cord was doubly clamped and cut after 60 seconds. The infant was passed to awaiting [nursery personnel]. The placenta was [expressed] from the uterus and appeared intact on inspection. The uterus was cleared of debris. The hysterotomy was then repaired using 0 Vicryl running lock suture. A second imbricating layer was also placed for additional hemostasis. The bladder blade was removed. The anterior cul-de-sac was cleared of debris. An omental defect was doubly clamped, cut and suture ligated at each end. The peritoneum was reapproximated using 2-0 Vicryl running suture. The rectus fascia was closed using 0 Vicryl running suture. The subcutaneous tissue was sponge irrigated and small capillary bleeding controlled using the Bovie device. The subcutaneous tissue was reapproximated using 2-0 Vicryl. The skin was closed using 4-0 Monocryl subcuticularly by the CLIENT PROFESSIONAL under my supervision. A Mepilex occlusive dressing was placed over the incision. The fundus was firm. The patient was then transferred to the recovery room without complication. Sponge, instrument, and needle counts were correct ?2. Amniotic Membrane Rupture Type: Artificial Amniotic Fluid Description: Clear Placenta Disposition: [facility] Drain: Vogel to straight drain Cord Entanglement: Around neck x 1, loose Nuchal Cord Compression: Without compression Cord Vessel Description: 3 Vessels Esitmated Blood Loss (ml): 600ml Infant Gender: Male (1 minute): 8 (5 minute): 9 Delayed cord clamping: Yes Antibiotic Given: Ancef 2 grams IV x1 Pt instructed on risks of surgery: Bleeding, Anesthesia Risks, Infection, Injury to surrounding structure(s) including bowel and bladder Complications: None - Admit VTE Documentation VTE Present on Admission: No VTE Mechan Device Prophylaxis: SCD's VTE Pharm Prophylaxis ordered?: No
[2020-02-10 00:23] VITALS: BP 118/61; PULSE 82; RESP 18; TEMP 37.3; O2SAT 98
[2020-02-10] MEDS: Acetaminophen 500 MG Tablet 1000 MG PO ×2 (00:28→05:37)
[2020-02-10] MEDS: Ketorolac 30 MG/ML Syringe IV ×2 (01:46→08:14)
[2020-02-10] MEDS: 0.9% Saline Lock 10 ML Syringe IV (01:46)
[2020-02-10 01:53] VITALS: BP 116/67; PULSE 67; RESP 16; TEMP 37; O2SAT 98
[2020-02-10 03:15] VITALS: BP 113/67; PULSE 73; RESP 16; TEMP 36.7; O2SAT 99
[2020-02-10] MEDS: Acyclovir 200 MG Capsule 400 MG PO (05:37)
[2020-02-10 05:51] LABS: Hematocrit 30.4 % (37-47); Mean Corp Hgb Conc 32.9 g/dL (32-36); Mean Corpuscular Hgb 30.3 pg (27.0-32.0); Mean Corpuscular Volume 92.1 fL (81-99); Mean Platelet Vol. 12.2 fl (6.2-12.0); Platelet Count 179 K/mm3 (150-450); RBC Distribution Width CV 13.8 % (11.6-14.6); RBC Distribution Width SD 46.1 fl (35.1-43.9); White Blood Count 7.8 K/mm3 (4.4-11.0)
[2020-02-10 07:42] VITALS: BP 117/76; PULSE 71; RESP 18; TEMP 37.2
--- NOTE | 2020-02-10 07:55 | PCM.PN.OB ---
Patient Problems: Active and Suspected Problems (Last Updated 02/09/20 @ 07:[address] Shanae Bender MD) 37 weeks gestation of (Acute) Subjective: No issues overnight. , Reilly, is feeding well. Pt . Denies significant painfulness. Hanna is OOB, ambulating, passing flatus, tolerates regular diet. No complaints. Requests d/c home today. Objective: AVSS - Physical Exam Vitals/I&O's: Vital Signs Temp Pulse Resp BP Pulse Ox 98.9 F 71 18 117/76 99 02/10/20 07:42 02/10/20 07:42 02/10/20 07:42 02/10/20 07:42 02/10/20 03:15 Oxygen Delivery Method Room Air Weight: 96.8 kg Body Mass Index (BMI) 34.4 Intake and Output for Last 24 Hours 02/08/20 02/09/20 02/10/20 23:59 23:59 23:59 Intake Total 4853.33 / 4853.33 Output Total 3000 / 3000 Balance 1853.33 / 1853.33 General: Alert, Oriented x3, Cooperative, No apparent distress HEENT: Atraumatic, Normocephalic Lungs: Clear to auscultation, Normal air movement Cardiovascular: Regular rate, Regular Rhythm, Normal S1, Normal S2 Abdomen: Soft, Non Tender, Non-Distended, - - Fundus firm and nontender, lochia scant Extremities: No edema, No Calf Tenderness Neurological: Neuro grossly intact Psych/Mental Status: Normal Affect, Appropriate, Alert and oriented to time, place, person, mood and affect Laboratory Results 02/10/20 05:40: WBC 7.8, RBC 3.30 L, Hgb 10.0 L, Hct 30.4 L, MCV 92.1, MCH 30.3, MCHC 32.9, RDW Std Deviation 46.1 H, RDW Coeff of Ernesto 13.8, Plt Count 179, MPV 12.2 H Current Medications Acetaminophen (Acetaminophen 500 Mg Tablet) 1,000 mg PO Q6 [facility] Last Admin: 02/10/20 05:37 Dose: 1,000 mg Documented by: Acyclovir (Acyclovir 200 Mg Capsule) 400 mg PO TID [facility] Last Admin: 02/10/20 05:37 Dose: 400 mg Documented by: Bisacodyl (Bisacodyl 10 Mg Suppository) 10 mg RECTAL UD PRN PRN Reason: If no BM Hydrocortisone (Hydrocortisone 2.5% Crm) 1 applic TOPICAL TID PRN PRN; Protocol PRN Reason: Discomfort Ibuprofen (Ibuprofen 600 Mg Tablet) 600 mg PO Q6H [facility] Ketorolac Tromethamine (Ketorolac 30 Mg/Ml Syringe) 30 mg IV Q6H [facility] Stop: 02/10/20 08:01 Last Admin: 02/10/20 01:46 Dose: 30 mg Documented by: Methylergonovine Maleate (Methylergonovine 0.2 Mg/Ml Ampul) 0.2 mg IM X1 PRN PRN Reason: Uterine Atony Ondansetron HCl (Ondansetron 4 Mg/2 Ml Vial) 4 mg IV Q4H PRN PRN PRN Reason: Nausea Oxycodone HCl (Oxycodone 5 Mg Tablet) 5 - 10 mg PO Q4H PRN PRN PRN Reason: Pain Score 4-10 Pantoprazole Sodium (Pantoprazole Sodium 40 Mg Tablet) 40 mg PO DAILY [facility] Last Admin: 02/09/20 13:52 Dose: 40 mg Documented by: Prochlorperazine Edisylate (Prochlorperazine 10 Mg/2 Ml Vial) 10 mg IV Q6H PRN PRN PRN Reason: NAUSEA Senna/Docusate Sodium (Senna/Docusate Sodium 1 Tablet) 0 tablet PO DAILY [facility] Last Admin: 02/09/20 13:51 Dose: Not Given Documented by: Simethicone (Simethicone 80 Mg Tablet) 80 mg PO HS PRN PRN Reason: Indigestion/stomach pain Sodium Chloride (0.9% Saline Lock 10 Ml Syringe) 5 - 15 ml IV UD PRN PRN Reason: SALINE FLUSH Last Admin: 02/10/20 01:46 Dose: 10 ml Documented by: Medical Necessity - Tobacco Use Smoking Status: Former smoker Assessment/Plan All Active Problems (Last Updated 02/09/20 @ 07:[address] Shanae Bender MD) History of classical section (Acute) delivery delivered (Acute) 37 weeks gestation of (Acute) 24yo POD#1 s/p PLTCS doing well. -Rh positive - -Routine postop care -Plan for d/c home later today
--- NOTE | 2020-02-10 08:04 | DCINST_ITS ---
Discharge Diet: No Restrictions Discharge Activity: Return to Normal Activity, May not drive while taking narcotic pain medications., May Shower, - - No tub bath for 2 weeks May resume sexual activity in: 4-6 weeks Lifting Restrictions: 10 lb Call your doctor if you observe: Fever of 101 or Higher, Inability to urinate, Inability to have a bowel movement, Using more than one pad per hour, Shortness of breath, Chest pain, Calf discomfort, Uncontrolled pain Suture Line Care: Avoid Pulling/Pushing Remove Dressing in (days):: 4 Cleanse incision/area with: Soap & Water Additional Instructions: If you experience any of the following, contact your healthcare provider. * Bleeding that soaks a pad every hour for 2 hours * Fever 100.4 or higher * Unrelieved incision or abdominal pain * Swelling, redness, discharge or bleeding from your incision or episiotomy site * Your incision begins to separate * Problems urinating (including inability to urinate or burning while urinating). * Visual changes * Severe headache * Flu-like symptoms * Pain or redness in one of both of your breasts * Pain, warmth, tenderness or swelling in your legs, especially the calf area * Frequent nausea and vomiting * Symptoms of depression or anxiety If you experience any of the following, call 911 or go to the nearest Emergency Room. * Chest pain * Problems breathing * Seizure activity * Partial or complete paralysis of a body part, slurred speech, weakness or drooping of the face, or a sudden inability to walk or hold your balance Allergies/Adverse Reactions: Allergies No Known Allergies Allergy (Verified 01/27/20 17:20) Medications to take at Discharge Ibuprofen [Motrin] 600 mg PO Q8H PRN #30 tab 02/10/20 Oxycodone [Oxyir] 1 tab PO Q6H PRN 7 Days #20 tablet 02/10/20 The following prescriptions were given: Ibuprofen [Motrin] 600 mg PO Q8H PRN #30 tab PRN Reason: Pain 1-10 Or Fever Transmission Status: Pending to [facility] Oxycodone [Oxyir] 1 tab PO Q6H PRN 7 Days #20 tablet PRN Reason: Pain Score 6-10 Transmission Status: Received by [facility] Follow-Up: Call to make an appointment with your doctor for an incision check in 1-2 weeks. You will also need a 6 week post- follow up appointment. Test results from this visit will be discussed in further detail at your follow- up appointment, if applicable. Please Follow Up With: Shanae Vuong MD When: 1-2 weeks Primary Care Physician: Care Physician,No Primary [Primary Care Provider] -
--- NOTE | 2020-02-10 08:07 | PCM.DC.SUM ---
Discharge Date and Diagnosis - Problem List Patient Problems: Active and Suspected Problems (Last Updated 02/09/20 @ 07:[address] Shanae Bender MD) 37 weeks gestation of (Acute) Date of Admission: 02/09/20 Date of Discharge: 02/10/20 - Primary Discharge Diagnosis Acute Problems: Active Problems (Last Updated 02/09/20 @ 07:[address] Shanae Bender MD) 37 weeks gestation of (Acute) Hospital Course and Treatment Operations: - - section Procedures: None Summary of Care Provided: The patient is a 24 year old F 3 para 2001 admitted at 37 2/7 weeks gestation for scheduled repeat section. Her procedure was uncomplicated and she was discharged to home on post-operative day #1. Patient Problems: Active and Suspected Problems (Last Updated 02/09/20 @ 07:[address] Shanae Bender MD) 37 weeks gestation of (Acute) - Physical Exam Vitals/I&O's: Vital Signs Temp Pulse Resp BP Pulse Ox 98.9 F 71 18 117/76 99 02/10/20 07:42 02/10/20 07:42 02/10/20 07:42 02/10/20 07:42 02/10/20 03:15 Oxygen Delivery Method Room Air Weight: 96.8 kg Body Mass Index (BMI) 34.4 Intake and Output for Last 24 Hours 02/08/20 02/09/20 02/10/20 23:59 23:59 23:59 Intake Total 4853.33 / 4853.33 Output Total 3000 / 3000 Balance 1853.33 / 1853.33 Laboratory Results 02/10/20 05:40: WBC 7.8, RBC 3.30 L, Hgb 10.0 L, Hct 30.4 L, MCV 92.1, MCH 30.3, MCHC 32.9, RDW Std Deviation 46.1 H, RDW Coeff of Ernesto 13.8, Plt Count 179, MPV 12.2 H Current Medications Acetaminophen (Acetaminophen 500 Mg Tablet) 1,000 mg PO Q6 [facility] Last Admin: 02/10/20 05:37 Dose: 1,000 mg Documented by: Acyclovir (Acyclovir 200 Mg Capsule) 400 mg PO TID [facility] Last Admin: 02/10/20 05:37 Dose: 400 mg Documented by: Bisacodyl (Bisacodyl 10 Mg Suppository) 10 mg RECTAL UD PRN PRN Reason: If no BM Hydrocortisone (Hydrocortisone 2.5% Crm) 1 applic TOPICAL TID PRN PRN; Protocol PRN Reason: Discomfort Ibuprofen (Ibuprofen 600 Mg Tablet) 600 mg PO Q6H [facility] Methylergonovine Maleate (Methylergonovine 0.2 Mg/Ml Ampul) 0.2 mg IM X1 PRN PRN Reason: Uterine Atony Ondansetron HCl (Ondansetron 4 Mg/2 Ml Vial) 4 mg IV Q4H PRN PRN PRN Reason: Nausea Oxycodone HCl (Oxycodone 5 Mg Tablet) 5 - 10 mg PO Q4H PRN PRN PRN Reason: Pain Score 4-10 Pantoprazole Sodium (Pantoprazole Sodium 40 Mg Tablet) 40 mg PO DAILY [facility] Last Admin: 02/09/20 13:52 Dose: 40 mg Documented by: Prochlorperazine Edisylate (Prochlorperazine 10 Mg/2 Ml Vial) 10 mg IV Q6H PRN PRN PRN Reason: NAUSEA Senna/Docusate Sodium (Senna/Docusate Sodium 1 Tablet) 0 tablet PO DAILY [facility] Last Admin: 02/09/20 13:51 Dose: Not Given Documented by: Simethicone (Simethicone 80 Mg Tablet) 80 mg PO [facility] PRN PRN Reason: Indigestion/stomach pain Sodium Chloride (0.9% Saline Lock 10 Ml Syringe) 5 - 15 ml IV UD PRN PRN Reason: SALINE FLUSH Last Admin: 02/10/20 01:46 Dose: 10 ml Documented by: Discharge Diet: No Restrictions Discharge Activity: Return to Normal Activity, May not drive while taking narcotic pain medications., May Shower, - - No tub bath for 2 weeks May resume sexual activity in: 4-6 weeks Call your doctor if you observe: Fever of 101 or Higher, Inability to urinate, Inability to have a bowel movement, Using more than one pad per hour, Shortness of breath, Chest pain, Calf discomfort, Uncontrolled pain Suture Line Care: Avoid Pulling/Pushing Remove Dressing in (days):: 4 Cleanse incision/area with: Soap & Water Home Medications: Medications to take at Discharge Ibuprofen [Motrin] 600 mg PO Q8H PRN #30 tab 02/10/20 Following Prescriptions Were Given to Patient: Ibuprofen [Motrin] 600 mg PO Q8H PRN #30 tab PRN Reason: Pain 1-10 Or Fever Transmission Status: Received by [facility] Primary Care Physician: Care Physician,No Primary [Primary Care Provider] - Please Follow Up With: Shanae Vuong MD When: 1-2 weeks Medical Necessity - Tobacco Use Smoking Status: Former smoker Meaningful Use Info Meaningful Use Diagnoses (Choose all that apply): None applicable
[2020-02-10] MEDS: Senna/Docusate Sodium 1 Tablet PO (10:02)
[2020-02-10] MEDS: Pantoprazole Sodium 40 MG Tablet PO (10:03)
--- NOTE | 2020-02-10 12:16 | CASEMGMT ---
Social Work Brief Assessment Labor and Delivery Unit Patient [address]: [address] [place] [address] , [place] [address] Phone number: [phone] Date of Referral/Notification: 02/09/2020 Time of Referral: 1249 Referred By: Yogi Bender Date of Intervention: 02/10/2020 Time of Intervention: 1015 Reason for Referral: Maternal history of anxiety and depression Informant: Medical record and mother of baby (MOB) Anny Conley History: MOB is a 24-year-old female who is 3, para 2 now 3 after delivering baby Reilly Conley. Father of baby (FOB) is Usman betancourt. MOB and FOB now have 3 children together, all boys: Jacqueline (09.23.2015), Ita (7.). and Reilly (02.09.2020). Reilly was born at 37 weeks gestation. Weight 6 pounds 4 ounces at Apgars were 8 and 9 at 1 and 5 minutes respectively. MOB is planning to breast-feed the baby and follow-up will be with Dr. Raman. It is reported that father works outside of the home. MOB does have a history of depression, anxiety, and some depression. Nothing that was medicated or in need of intervention per the MOB report. [place] had a negative drug screen on 07/10/2019. No indications reports of any type of substance use issues. [place] is high school graduate, and no issues with reading, writing, or learning comprehension. Assessment: Met with MOB and father of baby briefly in room, as parents were preparing to leave the hospital. [place] reports her mood is good right now, and has no concerns about mood or anxiety issues. This short story writer provided parents with a packet on said topic as well as a resource list for [facility] in case needs arise in the future. This short story writer also left this short story writer's card in case MOB has questions about any of the information after leaving the hospital. MOB and FOB report to have all needed baby supplies to care for the baby, and the FOB is taking 2 weeks off of work to help with the transition home. Nursing has voiced no concerns regarding parent-child interactions or bonding. MOB affect was bright, eye contact good, and speech spontaneous. Plan: MOB and baby are discharging home today. Resource information has been provided for home-going pertaining to mood and anxiety disorders and local resources to [facility]. No further needs requested or indicated. -DHARA Lee, CLARICE *Information documented in this assessment generated with [employer]*
== END 2020-02-10 11:30 | disposition home or self-care (01) | DRG 787 ==
PROVIDERS: Admitting Provider Obstetrics & Gynecology; Referring Provider Obstetrics & Gynecology; Visit Provider Obstetrics & Gynecology
PROC: (CPT 59514; principal; 2020-02-09 07:15)
DX: O34.212 Maternal care for vertical scar from previous cesarean delivery (principal); O98.32 Other infections with a predominantly sexual mode of transmission complicating childbirth; A60.9 Anogenital herpesviral infection, unspecified; O13.4 Gestational [pregnancy-induced] hypertension without significant proteinuria, complicating childbirth; O69.81X0 Labor and delivery complicated by cord around neck, without compression, not applicable or unspecified; Z87.891 Personal history of nicotine dependence; Z3A.37 37 weeks gestation of pregnancy; Z37.0 Single live birth
CPT/HCPCS: 85025; 85027; 86850; 86900; 86901; 99218; J7120; A4216; G0378; J2405

== ENCOUNTER → 2020-08-02 | Outpatient (CLI) | payer OTHER, SELFPAY ==
[2020-02-09 05:18] VITALS: BMI 34.4
[2020-08-04 20:08] LABS: Chlamydia By Nucleic Acid AMP Negative (Negative)
[2020-08-04 22:40] LABS: Gonococcus By Nucleic Acid AMP Negative (Negative)
[2020-08-08 16:39] LABS: HPV Reflexed? NOT INDICATED
== END | disposition home or self-care (01) ==
LOC: LABSPEC 08-03 08:56
PROVIDERS: Visit Provider Obstetrics & Gynecology
DX: Z12.4 Encounter for screening for malignant neoplasm of cervix (principal); Z11.3 Encounter for screening for infections with a predominantly sexual mode of transmission
CPT/HCPCS: 87491; 87591; 88175; G0145